=== PATIENT | female | born 1935 | race Caucasian/White ===

== ENCOUNTER → 2020-07-26 | Outpatient (CLI) | payer MEDICARE ==
[~2020-07-26] MED LIST: ALLEGRA ALLERG180 M2 PO; ATORVASTATIN CA20 M1 PO; CALCIUM + D SO1 EACH PO; CENTRUM ADULTS1 EACH PO; CITALOPRAM HYDR10 MG PO; CLOBETASOL PROP15 GM T; COZAAR100 MG PO; DAPSONE25 M1 PO; DONEPEZIL HYDRO23 M1 PO; FUROSEMIDE20 M1 PO; JANTOVEN5 MG PO; LEVOXYL137 MCG PO
== END | disposition home or self-care (01) ==
LOC: CT 14:00
PROVIDERS: ATTEND Nurse Practitioner
DX: K80.20 Calculus of gallbladder without cholecystitis without obstruction (principal); K44.9 Diaphragmatic hernia without obstruction or gangrene

== ENCOUNTER → 2020-08-25 | Outpatient (CLI) | payer MEDICARE ==
[~2020-08-25] MED LIST changes: +COLACE100 MG PO; +NORCO 5-325 TA1 EACH PO
== END | disposition home or self-care (01) ==
LOC: MRI 09:00
PROVIDERS: ATTEND Internal Medicine Sports Medicine
DX: M48.061 Spinal stenosis, lumbar region without neurogenic claudication (principal); M48.07 Spinal stenosis, lumbosacral region; M46.06 Spinal enthesopathy, lumbar region; M89.38 Hypertrophy of bone, other site

== ENCOUNTER → 2021-02-26 | Outpatient (CLI) | payer MEDICARE | END | disposition home or self-care (01) | LOC: RAD 09:34 | PROVIDERS: ATTEND Orthopaedic Surgery | DX: S72.35 Comminuted fracture of shaft of femur (principal); S72.451D Displaced supracondylar fracture without intracondylar extension of lower end of right femur, subsequent encounter for closed fracture with routine healing; X58.XXXD Exposure to other specified factors, subsequent encounter; Z96.651 Presence of right artificial knee joint; Z96.641 Presence of right artificial hip joint; Z98.890 Other specified postprocedural states ==

== ENCOUNTER 2021-03-08 15:23 | Inpatient (IN) | payer MEDICARE ==
[~2021-03-08] VITALS: Ht 172.7 cm; Wt 94.3 kg
[2021-03-08 15:28] VITALS: BP 109/83
[2021-03-08 16:06] LABS: BASO % 0.3 % (0.0-1.0); EOS # 0.2 10*3/uL (0.0-0.4); EOS % 2.3 % (1.0-4.0); LYMPH % 26.1 % (27.0-41.0); MEAN CELL VOLUME 92.5 fl (81.0-99.0); MEAN CORPUSCULAR HGB 28.1 pg (27.0-31.0); MEAN CORPUSCULAR HGB CONC 30.4 g/dl (33.0-37.0); MEAN PLATELET VOLUME 8.7 fl (9.6-12.3); MONO # 1.2 10*3/uL (0.1-1.0); MONO % 16.4 % (3.0-9.0); NEUT # 4.1 10*3/uL (2.3-7.9); NEUT % 54.5 % (47.0-73.0); PLATELET COUNT AUTOMATED 306 10*3/uL (130-400); RED BLOOD COUNT 2.92 10*6/uL (4.10-5.10); RED CELL DISTRI WIDTH 16.4 % (0-14.5); WHITE BLOOD COUNT 7.6 10*3/uL (4.8-10.8)
[2021-03-08 16:16] LABS: ACT PARTIAL THROMBO TIME 33.3 SECONDS (20.0-32.1); INTERNATIONAL NORM RATIO 1.8 (2.0-3.5)
[2021-03-08 16:24] LABS: ALBUMIN 2.1 gm/dl (3.1-4.5); ALKALINE PHOSPHATASE 103 U/L (45-117); BUN 14 mg/dl (7-24); CHLORIDE 101 mmol/L (98-107); CREATININE 1.08 mg/dL (0.55-1.02); LIPASE 147 U/L (73-393); SGOT/AST 11 IU/L (3-35); SGPT/ALT 10 U/L (12-78); SODIUM 134 mmol/L (136-145); TOTAL PROTEIN 6.6 gm/dL (6.4-8.2)
[2021-03-08 16:28] LABS: TROPONIN I < 0.015 ng/ml (<0.045)
[2021-03-08 16:30] VITALS: BP 115/60
[2021-03-08 17:00] VITALS: BP 124/64
[2021-03-08 17:30] VITALS: BP 130/71
[2021-03-08 20:07] VITALS: BP 96/56
[2021-03-08 20:50] VITALS: BP 106/66
[2021-03-08] MEDS ORDERED: LASIX40 MG PO (23:26)
[2021-03-08] MEDS ORDERED: TOPROL XL25 MG PO (23:30)
[2021-03-08] MEDS ORDERED: Coumadin3 MG PO (23:32)
[2021-03-08] MEDS ORDERED: WARFARIN SODIUM4 MG PO (23:33)
[2021-03-08] MEDS ORDERED: LEXAPRO5 M1 PO (23:33)
[2021-03-08] MEDS ORDERED: HYDROCODONE-AC1 EAC1 PO (23:35)
[2021-03-09] VITALS (8 sets, daily range): BP systolic 102–128; BP diastolic 34–83
[2021-03-09 06:03] LABS: BASO % 0.4 % (0.0-1.0); EOS # 0.2 10*3/uL (0.0-0.4); EOS % 3.1 % (1.0-4.0); LYMPH # 1.9 10*3/uL (1.3-4.4); LYMPH % 25.5 % (27.0-41.0); MEAN CELL VOLUME 94.1 fl (81.0-99.0); MEAN CORPUSCULAR HGB 28.2 pg (27.0-31.0); MEAN PLATELET VOLUME 9.1 fl (9.6-12.3); MONO # 1.2 10*3/uL (0.1-1.0); MONO % 15.8 % (3.0-9.0); NEUT # 4.1 10*3/uL (2.3-7.9); NEUT % 54.7 % (47.0-73.0); PLATELET COUNT AUTOMATED 282 10*3/uL (130-400); RED BLOOD COUNT 2.87 10*6/uL (4.10-5.10); RED CELL DISTRI WIDTH 16.4 % (0-14.5); WHITE BLOOD COUNT 7.4 10*3/uL (4.8-10.8)
[2021-03-09 06:16] LABS: INTERNATIONAL NORM RATIO 1.8 (2.0-3.5)
[2021-03-09 06:25] LABS: ALBUMIN 2.3 gm/dl (3.1-4.5); BUN 16 mg/dl (7-24); CHLORIDE 99 mmol/L (98-107); CREATININE 0.99 mg/dL (0.55-1.02); POTASSIUM 3.7 mmol/L (3.5-5.1); SGOT/AST 10 IU/L (3-35); SGPT/ALT 9 U/L (12-78); SODIUM 135 mmol/L (136-145); TOTAL PROTEIN 6.3 gm/dL (6.4-8.2)
[2021-03-09 06:26] LABS: ALKALINE PHOSPHATASE 95 U/L (45-117)
[2021-03-10 06:32] LABS: BUN 21 mg/dl (7-24); CHLORIDE 97 mmol/L (98-107); CREATININE 1.03 mg/dL (0.55-1.02); POTASSIUM 4.3 mmol/L (3.5-5.1); SODIUM 133 mmol/L (136-145)
[2021-03-10 08:00] VITALS: BP 125/74
[2021-03-10 12:00] VITALS: BP 128/69
[2021-03-10 16:05] VITALS: BP 99/56
[2021-03-10 20:00] VITALS: BP 115/58
[2021-03-10 23:51] VITALS: BP 125/81
[2021-03-11 05:41] LABS: CREATININE 1.09 mg/dL (0.55-1.02); POTASSIUM 3.9 mmol/L (3.5-5.1)
[2021-03-11 06:11] LABS: INTERNATIONAL NORM RATIO 2.7 (2.0-3.5)
[2021-03-11 06:12] LABS: BASO % 0.4 % (0.0-1.0); EOS % 0.3 % (1.0-4.0); HEMATOCRIT 25.9 % (37.0-47.0); LYMPH # 2.2 10*3/uL (1.3-4.4); LYMPH % 19.8 % (27.0-41.0); MEAN CELL VOLUME 91.2 fl (81.0-99.0); MEAN CORPUSCULAR HGB 27.8 pg (27.0-31.0); MEAN CORPUSCULAR HGB CONC 30.5 g/dl (33.0-37.0); MEAN PLATELET VOLUME 9.4 fl (9.6-12.3); MONO # 1.5 10*3/uL (0.1-1.0); MONO % 13.6 % (3.0-9.0); NEUT # 7.2 10*3/uL (2.3-7.9); NEUT % 65.2 % (47.0-73.0); NUCLEATED RED BLOOD CELL 0.3 % (0.0-0.0); PLATELET COUNT AUTOMATED 304 10*3/uL (130-400); RED BLOOD COUNT 2.84 10*6/uL (4.10-5.10); RED CELL DISTRI WIDTH 17.1 % (0-14.5)
[2021-03-11 08:00] VITALS: BP 117/64
[2021-03-11 11:27] VITALS: BP 91/51
[2021-03-11 16:02] VITALS: BP 108/90
[2021-03-11 20:00] VITALS: BP 100/78
[2021-03-12] VITALS: BP 109/64
[2021-03-12 06:08] LABS: CREATININE 1.3 mg/dL (0.55-1.02); POTASSIUM 3.7 mmol/L (3.5-5.1)
[2021-03-12 06:18] LABS: INTERNATIONAL NORM RATIO 3.8 (2.0-3.5)
[2021-03-12 06:35] LABS: HEMATOCRIT 26.4 % (37.0-47.0); MEAN CORPUSCULAR HGB CONC 29.5 g/dl (33.0-37.0); MEAN PLATELET VOLUME 9.4 fl (9.6-12.3); NUCLEATED RED BLOOD CELL 0.3 % (0.0-0.0); PLATELET COUNT AUTOMATED 300 10*3/uL (130-400); RED BLOOD COUNT 2.79 10*6/uL (4.10-5.10); RED CELL DISTRI WIDTH 17.5 % (0-14.5); WHITE BLOOD COUNT 11.5 10*3/uL (4.8-10.8)
[2021-03-12 06:37] LABS: MEAN CELL VOLUME 94.6 fl (81.0-99.0)
[2021-03-12 07:24] LABS: PLATELET SUFFICIENCY NORMAL (NORMAL); POLYCHROMASIA SLIGHT; TOTAL CELLS COUNTED 100 #CELLS
[2021-03-12 07:25] LABS: BURR CELLS FEW; ROULEAUX SLIGHT; SCHISTOCYTES FEW
[2021-03-12 08:00] VITALS: BP 100/59
[2021-03-12 12:00] VITALS: BP 110/62
[2021-03-12 16:00] VITALS: BP 99/61
[2021-03-12 20:14] VITALS: BP 91/60
[2021-03-12 23:11] VITALS: BP 104/64
[2021-03-13 06:12] LABS: INTERNATIONAL NORM RATIO 4.4 (2.0-3.5)
[2021-03-13 08:00] VITALS: BP 86/40
[2021-03-13 12:00] VITALS: BP 109/64
[2021-03-13 16:00] VITALS: BP 149/100
[2021-03-13 20:00] VITALS: BP 82/47
[2021-03-13 21:04] VITALS: BP 100/78
[2021-03-14] VITALS: BP 107/60
[2021-03-14 05:14] LABS: CREATININE 1.16 mg/dL (0.55-1.02); POTASSIUM 3.3 mmol/L (3.5-5.1)
[2021-03-14 05:33] LABS: INTERNATIONAL NORM RATIO 4.6 (2.0-3.5)
[2021-03-14 06:02] LABS: BASO % 0.3 % (0.0-1.0); EOS # 0.1 10*3/uL (0.0-0.4); EOS % 0.6 % (1.0-4.0); HEMATOCRIT 26.1 % (37.0-47.0); LYMPH # 2.3 10*3/uL (1.3-4.4); LYMPH % 19.6 % (27.0-41.0); MEAN CELL VOLUME 92.9 fl (81.0-99.0); MEAN CORPUSCULAR HGB 27.4 pg (27.0-31.0); MEAN CORPUSCULAR HGB CONC 29.5 g/dl (33.0-37.0); MEAN PLATELET VOLUME 9.5 fl (9.6-12.3); MONO # 1.3 10*3/uL (0.1-1.0); MONO % 10.6 % (3.0-9.0); NEUT # 8.1 10*3/uL (2.3-7.9); NEUT % 67.7 % (47.0-73.0); NUCLEATED RED BLOOD CELL 0.2 % (0.0-0.0); PLATELET COUNT AUTOMATED 330 10*3/uL (130-400); RED BLOOD COUNT 2.81 10*6/uL (4.10-5.10); RED CELL DISTRI WIDTH 17.5 % (0-14.5); WHITE BLOOD COUNT 11.9 10*3/uL (4.8-10.8)
[2021-03-14 08:00] VITALS: BP 112/68
[2021-03-14 12:00] VITALS: BP 89/47
[2021-03-14 16:00] VITALS: BP 107/68
[2021-03-14 20:00] VITALS: BP 108/64; BP 98/54
[2021-03-14 20:26] VITALS: BP 90/54
[2021-03-15] VITALS: BP 113/73
[2021-03-15 06:13] LABS: INTERNATIONAL NORM RATIO 3.2 (2.0-3.5)
[2021-03-15 06:25] LABS: BASO % 0.2 % (0.0-1.0); EOS # 0.1 10*3/uL (0.0-0.4); EOS % 0.7 % (1.0-4.0); HEMATOCRIT 25.8 % (37.0-47.0); LYMPH # 2.7 10*3/uL (1.3-4.4); LYMPH % 25.3 % (27.0-41.0); MEAN CELL VOLUME 92.1 fl (81.0-99.0); MEAN CORPUSCULAR HGB 27.5 pg (27.0-31.0); MEAN CORPUSCULAR HGB CONC 29.8 g/dl (33.0-37.0); MEAN PLATELET VOLUME 9.5 fl (9.6-12.3); MONO # 1.2 10*3/uL (0.1-1.0); MONO % 11.3 % (3.0-9.0); NEUT # 6.5 10*3/uL (2.3-7.9); NEUT % 61.9 % (47.0-73.0); NUCLEATED RED BLOOD CELL 0.2 % (0.0-0.0); PLATELET COUNT AUTOMATED 360 10*3/uL (130-400); RED CELL DISTRI WIDTH 17.6 % (0-14.5); WHITE BLOOD COUNT 10.5 10*3/uL (4.8-10.8)
[2021-03-15 08:00] VITALS: BP 100/62
[2021-03-15 12:00] VITALS: BP 112/74
[2021-03-15 16:00] VITALS: BP 92/56
[2021-03-15 20:00] VITALS: BP 92/47
[2021-03-16] VITALS: BP 111/66
[2021-03-16 06:05] LABS: INTERNATIONAL NORM RATIO 3.6 (2.0-3.5)
[2021-03-16 08:00] VITALS: BP 104/72
[2021-03-16] MEDS ORDERED: METOPROLOL SUCC50 M1 PO (11:50)
[2021-03-16] MEDS ORDERED: LOSARTAN POTASS25 M1 PO (11:50)
[2021-03-16] MEDS ORDERED: WARFARIN SOD2 MG PO (11:50)
[2021-03-16 12:00] VITALS: BP 108/68
== END 2021-03-16 15:40 | DRG 291 ==
LOC: ED 15:23 → EDHOLD 17:22 → 4E 17:22
PROVIDERS: Emergency Medicine; Internal Medicine; Registered Nurse; Student in an Organized Health Care Education/Training Program; ADMIT Internal Medicine; ATTEND Internal Medicine
DX: I13.0 Hypertensive heart and chronic kidney disease with heart failure and stage 1 through stage 4 chronic kidney disease, or unspecified chronic kidney disease (principal); E43 Unspecified severe protein-calorie malnutrition; J96.01 Acute respiratory failure with hypoxia; I50.33 Acute on chronic diastolic (congestive) heart failure; N17.0 Acute kidney failure with tubular necrosis; E87.1 Hypo-osmolality and hyponatremia; L12.0 Bullous pemphigoid; D68.9 Coagulation defect, unspecified; I48.19 Other persistent atrial fibrillation; I48.92 Unspecified atrial flutter; R65.10 Systemic inflammatory response syndrome (SIRS) of non-infectious origin without acute organ dysfunction; G30.9 Alzheimer's disease, unspecified; I83.93 Asymptomatic varicose veins of bilateral lower extremities; I48.0 Paroxysmal atrial fibrillation; N18.32 Chronic kidney disease, stage 3b; R73.9 Hyperglycemia, unspecified; E03.9 Hypothyroidism, unspecified; F02.80 Dementia in other diseases classified elsewhere, unspecified severity, without behavioral disturbance, psychotic disturbance, mood disturbance, and anxiety; E78.5 Hyperlipidemia, unspecified; Z96.651 Presence of right artificial knee joint; Z96.643 Presence of artificial hip joint, bilateral; M19.90 Unspecified osteoarthritis, unspecified site; M81.0 Age-related osteoporosis without current pathological fracture; M51.36 Other intervertebral disc degeneration, lumbar region; K80.80 Other cholelithiasis without obstruction; D64.9 Anemia, unspecified; I95.9 Hypotension, unspecified; M79.672 Pain in left foot; I70.203 Unspecified atherosclerosis of native arteries of extremities, bilateral legs; M19.072 Primary osteoarthritis, left ankle and foot; M65.88 Other synovitis and tenosynovitis, other site; S80.822A Blister (nonthermal), left lower leg, initial encounter; X58.XXXA Exposure to other specified factors, initial encounter; Z68.34 Body mass index [BMI] 34.0-34.9, adult; Z88.0 Allergy status to penicillin; Z90.49 Acquired absence of other specified parts of digestive tract; Z90.710 Acquired absence of both cervix and uterus; Z98.49 Cataract extraction status, unspecified eye; Z82.49 Family history of ischemic heart disease and other diseases of the circulatory system; Z82.0 Family history of epilepsy and other diseases of the nervous system; Z79.899 Other long term (current) drug therapy; Y93.89 Activity, other specified; Y92.89 Other specified places as the place of occurrence of the external cause; Y99.8 Other external cause status; Z68.31 Body mass index [BMI] 31.0-31.9, adult

== ENCOUNTER → 2021-03-28 | Outpatient (CLI) | payer MEDICARE ==
[~2021-03-28] MED LIST changes: +Coumadin3 MG PO; +HYDROCODONE-AC1 EAC1 PO; +LASIX40 MG PO; +LEXAPRO5 M1 PO; +LOSARTAN POTASS25 M1 PO; +METOPROLOL SUCC50 M1 PO; +TOPROL XL25 MG PO; +WARFARIN SOD2 MG PO; +WARFARIN SODIUM4 MG PO
== END | disposition home or self-care (01) ==
LOC: ORTHO 01:05
PROVIDERS: ATTEND Orthopaedic Surgery
DX: S72.35 Comminuted fracture of shaft of femur (principal); X58.XXXD Exposure to other specified factors, subsequent encounter; Z96.641 Presence of right artificial hip joint; Z96.651 Presence of right artificial knee joint

== ENCOUNTER → 2021-04-13 | Outpatient (CLI) | payer MEDICARE | END | disposition home or self-care (01) | LOC: ORTHO 04-12 01:57 | PROVIDERS: ATTEND Orthopaedic Surgery | DX: M84.451D Pathological fracture, right femur, subsequent encounter for fracture with routine healing (principal); I70.201 Unspecified atherosclerosis of native arteries of extremities, right leg ==

== ENCOUNTER → 2021-04-27 | Outpatient (CLI) | payer MEDICARE | END | disposition home or self-care (01) | LOC: RAD 02:04 | PROVIDERS: ATTEND Orthopaedic Surgery | DX: M81.0 Age-related osteoporosis without current pathological fracture (principal); M84.451D Pathological fracture, right femur, subsequent encounter for fracture with routine healing; I25.10 Atherosclerotic heart disease of native coronary artery without angina pectoris; Z96.641 Presence of right artificial hip joint; Z98.890 Other specified postprocedural states ==

== ENCOUNTER → 2021-06-01 | Outpatient (CLI) | payer MEDICARE | LOC: ORTHO 00:39 | PROVIDERS: ATTEND Orthopaedic Surgery | DX: S72.301D Unspecified fracture of shaft of right femur, subsequent encounter for closed fracture with routine healing (principal); M16.11 Unilateral primary osteoarthritis, right hip; X58.XXXD Exposure to other specified factors, subsequent encounter ==

== ENCOUNTER 2021-07-17 16:48 | Inpatient (IN) | payer MEDICARE ==
[~2021-07-17] VITALS: Ht 172.7 cm; Wt 75.0 kg
[2021-07-17 16:53] VITALS: BP 104/46
[2021-07-17 17:07] LABS: HEMATOCRIT 23.3 % (37.0-47.0); MEAN CORPUSCULAR HGB 24.5 pg (27.0-31.0); PLATELET COUNT AUTOMATED 454 10*3/uL (130-400); RED BLOOD COUNT 2.86 10*6/uL (4.10-5.10); RED CELL DISTRI WIDTH 19.4 % (0-14.5); WHITE BLOOD COUNT 9.7 10*3/uL (4.8-10.8)
[2021-07-17 17:22] LABS: MEAN CELL VOLUME 81.5 fl (81.0-99.0)
[2021-07-17 17:23] LABS: ALBUMIN 1.9 gm/dl (3.1-4.5); CREATININE 1.86 mg/dL (0.55-1.02); POTASSIUM 5.2 mmol/L (3.5-5.1); TOTAL PROTEIN 7.6 gm/dL (6.4-8.2)
[2021-07-17 17:31] LABS: ATYPICAL LYMPHS 1 % (0-0); TOTAL CELLS COUNTED 100 #CELLS
[2021-07-17 17:32] LABS: MICROCYTOSIS SLIGHT; PLATELET SUFFICIENCY HIGH (NORMAL)
[2021-07-17 17:45] LABS: BILIRUBIN Negative (Negative); BLOOD 2+ (Negative); CLARITY Turbid (Clear); COLOR Yellow (Yellow); GLUCOSE Negative (Negative); KETONE Negative (Negative); LEUKO ESTERASE 3+ (Negative); NITRITE Positive (Negative); PH 6.5 (4.5-8.0); UROBILINOGEN 0.2 E.U./dl (0.0-1.0)
[2021-07-17 17:53] LABS: BACTERIA 4+; WBC TNTC wbc/hpf (0-5)
[2021-07-17 19:50] VITALS: BP 112/51
[2021-07-17 21:55] VITALS: BP 104/64
[2021-07-17 22:37] LABS: INTERNATIONAL NORM RATIO 1.2 (2.0-3.5)
[2021-07-17] MEDS ORDERED: AQUAPHOR WITH N50 GM T (23:03)
[2021-07-17] MEDS ORDERED: ELIQUIS5 M1 PO (23:27)
[2021-07-17] MEDS ORDERED: ROBITUSSIN5 ML PO (23:29)
[2021-07-17] MEDS ORDERED: HYDROCORTISON28.4 G5 T (23:31)
[2021-07-17] MEDS ORDERED: DRONABINOL2.5 MG PO (23:39)
[2021-07-17] MEDS ORDERED: LOPRESSOR25 MG PO (23:41)
[2021-07-17] MEDS ORDERED: MOM30 M1 PO (23:42)
[2021-07-17] MEDS ORDERED: MIRALAX POWDER17 G1 PO (23:43)
[2021-07-17] MEDS ORDERED: ZOFRAN4 MG PO (23:44)
[2021-07-17] MEDS ORDERED: POTASSIUM CHLO20 ME3 PO (23:47)
[2021-07-17] MEDS ORDERED: REMERON30 M1 PO (23:48)
[2021-07-18] VITALS (13 sets, daily range): BP systolic 87–140; BP diastolic 38–70
[2021-07-18 06:24] LABS: HEMATOCRIT 21.6 % (37.0-47.0); MEAN CELL VOLUME 82.8 fl (81.0-99.0); MEAN CORPUSCULAR HGB 24.1 pg (27.0-31.0); MEAN CORPUSCULAR HGB CONC 29.2 g/dl (33.0-37.0); MEAN PLATELET VOLUME 8.7 fl (9.6-12.3); PLATELET COUNT AUTOMATED 447 10*3/uL (130-400); RED BLOOD COUNT 2.61 10*6/uL (4.10-5.10); RED CELL DISTRI WIDTH 19.4 % (0-14.5); WHITE BLOOD COUNT 10.4 10*3/uL (4.8-10.8)
[2021-07-18 06:40] LABS: ALBUMIN 1.7 gm/dl (3.1-4.5); CREATININE 1.78 mg/dL (0.55-1.02); FREE T4 0.58 ng/dl (0.76-1.46); POTASSIUM 4.8 mmol/L (3.5-5.1); TOTAL PROTEIN 6.8 gm/dL (6.4-8.2)
[2021-07-18 06:46] LABS: THYROID STIM HORMONE (HS) 13.3 uIU/ml (0.358-4.75)
[2021-07-18 07:52] LABS: PLATELET SUFFICIENCY HIGH (NORMAL); ROULEAUX MODERATE; TOTAL CELLS COUNTED 100 #CELLS
[2021-07-18 13:50] LABS: BASO % 0.2 % (0.0-1.0); EOS % 0.3 % (1.0-4.0); HEMATOCRIT 27.7 % (37.0-47.0); LYMPH # 1.1 10*3/uL (1.3-4.4); LYMPH % 11.3 % (27.0-41.0); MEAN CELL VOLUME 84.5 fl (81.0-99.0); MEAN CORPUSCULAR HGB 25.3 pg (27.0-31.0); MEAN PLATELET VOLUME 8.1 fl (9.6-12.3); MONO % 10.1 % (3.0-9.0); NEUT # 7.6 10*3/uL (2.3-7.9); NEUT % 76.9 % (47.0-73.0); PLATELET COUNT AUTOMATED 406 10*3/uL (130-400); RED BLOOD COUNT 3.28 10*6/uL (4.10-5.10); RED CELL DISTRI WIDTH 18.3 % (0-14.5); WHITE BLOOD COUNT 9.9 10*3/uL (4.8-10.8)
[2021-07-19] VITALS (10 sets, daily range): BP systolic 90–136; BP diastolic 36–93
[2021-07-19 06:24] LABS: BASO % 0.2 % (0.0-1.0); EOS % 0.2 % (1.0-4.0); HEMATOCRIT 23.8 % (37.0-47.0); LYMPH # 0.4 10*3/uL (1.3-4.4); LYMPH % 3.4 % (27.0-41.0); MEAN CELL VOLUME 85.9 fl (81.0-99.0); MEAN CORPUSCULAR HGB 25.3 pg (27.0-31.0); MEAN CORPUSCULAR HGB CONC 29.4 g/dl (33.0-37.0); MEAN PLATELET VOLUME 8.6 fl (9.6-12.3); MONO # 0.6 10*3/uL (0.1-1.0); MONO % 4.8 % (3.0-9.0); NEUT # 11.3 10*3/uL (2.3-7.9); PLATELET COUNT AUTOMATED 373 10*3/uL (130-400); RED BLOOD COUNT 2.77 10*6/uL (4.10-5.10); RED CELL DISTRI WIDTH 18.6 % (0-14.5); WHITE BLOOD COUNT 12.5 10*3/uL (4.8-10.8)
[2021-07-19 07:02] LABS: ALBUMIN 1.6 gm/dl (3.1-4.5); CREATININE 1.67 mg/dL (0.55-1.02); POTASSIUM 4.4 mmol/L (3.5-5.1); TOTAL PROTEIN 6.6 gm/dL (6.4-8.2)
[2021-07-19 20:34] LABS: BASO % 0.1 % (0.0-1.0); EOS # 0.2 10*3/uL (0.0-0.4); EOS % 1.7 % (1.0-4.0); LYMPH # 1.2 10*3/uL (1.3-4.4); LYMPH % 8.8 % (27.0-41.0); MEAN CELL VOLUME 88.9 fl (81.0-99.0); MEAN CORPUSCULAR HGB 26.1 pg (27.0-31.0); MEAN CORPUSCULAR HGB CONC 29.4 g/dl (33.0-37.0); MEAN PLATELET VOLUME 8.3 fl (9.6-12.3); MONO # 0.7 10*3/uL (0.1-1.0); MONO % 5.4 % (3.0-9.0); NEUT # 11.4 10*3/uL (2.3-7.9); NEUT % 82.8 % (47.0-73.0); PLATELET COUNT AUTOMATED 358 10*3/uL (130-400); RED CELL DISTRI WIDTH 17.9 % (0-14.5); WHITE BLOOD COUNT 13.7 10*3/uL (4.8-10.8)
[2021-07-20] VITALS (8 sets, daily range): BP systolic 89–132; BP diastolic 42–85
[2021-07-20 05:53] LABS: ALBUMIN 1.5 gm/dl (3.1-4.5); CREATININE 1.45 mg/dL (0.55-1.02); TOTAL PROTEIN 6.4 gm/dL (6.4-8.2)
[2021-07-20 06:19] LABS: BASO % 0.2 % (0.0-1.0); EOS # 0.1 10*3/uL (0.0-0.4); EOS % 0.5 % (1.0-4.0); HEMATOCRIT 27.3 % (37.0-47.0); LYMPH # 0.8 10*3/uL (1.3-4.4); LYMPH % 5.9 % (27.0-41.0); MEAN CELL VOLUME 87.5 fl (81.0-99.0); MEAN CORPUSCULAR HGB CONC 29.7 g/dl (33.0-37.0); MEAN PLATELET VOLUME 8.8 fl (9.6-12.3); MONO # 0.6 10*3/uL (0.1-1.0); MONO % 4.3 % (3.0-9.0); NEUT # 11.4 10*3/uL (2.3-7.9); NEUT % 87.3 % (47.0-73.0); PLATELET COUNT AUTOMATED 324 10*3/uL (130-400); RED BLOOD COUNT 3.12 10*6/uL (4.10-5.10); WHITE BLOOD COUNT 13.1 10*3/uL (4.8-10.8)
[2021-07-21] VITALS: BP 107/56
[2021-07-21 04:00] VITALS: BP 103/51
[2021-07-21 06:06] LABS: ALBUMIN 1.7 gm/dl (3.1-4.5); CREATININE 1.42 mg/dL (0.55-1.02); POTASSIUM 4.6 mmol/L (3.5-5.1); TOTAL PROTEIN 6.1 gm/dL (6.4-8.2)
[2021-07-21 06:28] LABS: HEMATOCRIT 34.3 % (37.0-47.0); MEAN CELL VOLUME 87.7 fl (81.0-99.0); MEAN CORPUSCULAR HGB 25.3 pg (27.0-31.0); MEAN CORPUSCULAR HGB CONC 28.9 g/dl (33.0-37.0); MEAN PLATELET VOLUME 8.9 fl (9.6-12.3); PLATELET COUNT AUTOMATED 302 10*3/uL (130-400); RED BLOOD COUNT 3.91 10*6/uL (4.10-5.10); RED CELL DISTRI WIDTH 18.5 % (0-14.5); WHITE BLOOD COUNT 13.1 10*3/uL (4.8-10.8)
[2021-07-21 08:00] VITALS: BP 109/52
[2021-07-21 08:22] LABS: TOTAL CELLS COUNTED 100 #CELLS
[2021-07-21 08:23] LABS: ACANTHOCYTES FEW; PLATELET SUFFICIENCY NORMAL (NORMAL); POLYCHROMASIA SLIGHT
[2021-07-21 08:24] LABS: BURR CELLS MODERATE
[2021-07-21 12:00] VITALS: BP 99/58
[2021-07-21 13:28] LABS: BILIRUBIN Negative (Negative); BLOOD 3+ (Negative); CLARITY Turbid (Clear); COLOR Orange (Yellow); GLUCOSE Negative (Negative); KETONE Negative (Negative); LEUKO ESTERASE 3+ (Negative); NITRITE Negative (Negative); PH 5.5 (4.5-8.0); SPECIFIC GRAVITY 1.015 (1.001-1.030)
[2021-07-21 13:38] LABS: MUCOUS 2+; RBC TNTC rbc/hpf (0-2); WBC TNTC wbc/hpf (0-5)
[2021-07-21 15:56] VITALS: BP 115/65
[2021-07-21 20:00] VITALS: BP 94/51
[2021-07-22] VITALS: BP 99/60
[2021-07-22 04:00] VITALS: BP 109/64
[2021-07-22 12:00] VITALS: BP 91/56
[2021-07-22 16:00] VITALS: BP 94/55
[2021-07-22 20:00] VITALS: BP 128/84
[2021-07-22 22:25] VITALS: BP 110/60
[2021-07-23 02:38] VITALS: BP 114/70
[2021-07-23 06:36] LABS: HEMATOCRIT 31.4 % (37.0-47.0); MEAN CORPUSCULAR HGB 25.4 pg (27.0-31.0); MEAN CORPUSCULAR HGB CONC 30.3 g/dl (33.0-37.0); MEAN PLATELET VOLUME 9.1 fl (9.6-12.3); PLATELET COUNT AUTOMATED 319 10*3/uL (130-400); RED BLOOD COUNT 3.74 10*6/uL (4.10-5.10); RED CELL DISTRI WIDTH 18.4 % (0-14.5); WHITE BLOOD COUNT 12.3 10*3/uL (4.8-10.8)
[2021-07-23 06:55] LABS: ALBUMIN 1.5 gm/dl (3.1-4.5); ALKALINE PHOSPHATASE 86 U/L (45-117); BUN 29 mg/dl (7-24); CHLORIDE 105 mmol/L (98-107); POTASSIUM 3.9 mmol/L (3.5-5.1); SGOT/AST 19 IU/L (3-35); SGPT/ALT 20 U/L (12-78); SODIUM 132 mmol/L (136-145); TOTAL PROTEIN 6.3 gm/dL (6.4-8.2)
[2021-07-23 08:00] VITALS: BP 99/59
[2021-07-23 08:30] LABS: PLATELET SUFFICIENCY NORMAL (NORMAL); TOTAL CELLS COUNTED 100 #CELLS
[2021-07-23 12:00] VITALS: BP 112/69; BP 128/67; BP 134/76
[2021-07-23 16:00] VITALS: BP 110/55
[2021-07-23 20:00] VITALS: BP 114/73
[2021-07-24] VITALS: BP 126/79
[2021-07-24 06:54] LABS: HEMATOCRIT 31.3 % (37.0-47.0); MEAN CORPUSCULAR HGB 25.5 pg (27.0-31.0); MEAN CORPUSCULAR HGB CONC 30.7 g/dl (33.0-37.0); MEAN PLATELET VOLUME 8.9 fl (9.6-12.3); PLATELET COUNT AUTOMATED 352 10*3/uL (130-400); RED BLOOD COUNT 3.77 10*6/uL (4.10-5.10); RED CELL DISTRI WIDTH 18.7 % (0-14.5); WHITE BLOOD COUNT 14.5 10*3/uL (4.8-10.8)
[2021-07-24 07:25] LABS: ALBUMIN 1.5 gm/dl (3.1-4.5); ALKALINE PHOSPHATASE 86 U/L (45-117); BUN 30 mg/dl (7-24); CHLORIDE 107 mmol/L (98-107); CREATININE 1.01 mg/dL (0.55-1.02); POTASSIUM 4.1 mmol/L (3.5-5.1); SGOT/AST 16 IU/L (3-35); SGPT/ALT 19 U/L (12-78); SODIUM 134 mmol/L (136-145); TOTAL PROTEIN 6.1 gm/dL (6.4-8.2)
[2021-07-24 08:00] VITALS: BP 96/55
[2021-07-24 08:05] LABS: PLATELET SUFFICIENCY NORMAL (NORMAL); TOTAL CELLS COUNTED 100 #CELLS
[2021-07-24 12:00] VITALS: BP 91/65
[2021-07-24] MEDS ORDERED: DECADRON6 M1 PO (12:03)
[2021-07-24] MEDS ORDERED: HYDROCODONE-AC1 EAC1 PO (12:04)
== END 2021-07-24 14:20 | DRG 871 ==
LOC: ED 16:48 → 4E 18:04 → EDHOLD 18:04 → 4E 21:14 → ICCU 07-19 20:30 → 4E 07-22 19:31
PROVIDERS: Internal Medicine; Internal Medicine Critical Care Medicine; Student in an Organized Health Care Education/Training Program; ADMIT Family Medicine; ATTEND Family Medicine
PROC: 30233N1 Transfusion of Nonautologous Red Blood Cells into Peripheral Vein, Percutaneous Approach (ICD-10-PCS; principal; 2021-07-18)
PROC: XW033E5 Introduction of Remdesivir Anti-infective into Peripheral Vein, Percutaneous Approach, New Technology Group 5 (ICD-10-PCS; 2021-07-21)
DX: A41.9 Sepsis, unspecified organism (principal); E43 Unspecified severe protein-calorie malnutrition; R65.21 Severe sepsis with septic shock; G93.41 Metabolic encephalopathy; U07.1 COVID-19; N39.0 Urinary tract infection, site not specified; E87.1 Hypo-osmolality and hyponatremia; I87.1 Compression of vein; N18.4 Chronic kidney disease, stage 4 (severe); I50.32 Chronic diastolic (congestive) heart failure; I13.0 Hypertensive heart and chronic kidney disease with heart failure and stage 1 through stage 4 chronic kidney disease, or unspecified chronic kidney disease; I24.8 Other forms of acute ischemic heart disease; I47.1 Supraventricular tachycardia; R31.9 Hematuria, unspecified; I48.0 Paroxysmal atrial fibrillation; E03.9 Hypothyroidism, unspecified; M19.90 Unspecified osteoarthritis, unspecified site; M81.0 Age-related osteoporosis without current pathological fracture; E87.5 Hyperkalemia; E78.5 Hyperlipidemia, unspecified; I48.91 Unspecified atrial fibrillation; G30.9 Alzheimer's disease, unspecified; F02.80 Dementia in other diseases classified elsewhere, unspecified severity, without behavioral disturbance, psychotic disturbance, mood disturbance, and anxiety; R73.9 Hyperglycemia, unspecified; Z96.643 Presence of artificial hip joint, bilateral; G89.29 Other chronic pain; I95.9 Hypotension, unspecified; D50.0 Iron deficiency anemia secondary to blood loss (chronic); B96.1 Klebsiella pneumoniae [K. pneumoniae] as the cause of diseases classified elsewhere; Z90.49 Acquired absence of other specified parts of digestive tract; Z90.710 Acquired absence of both cervix and uterus; Z79.1 Long term (current) use of non-steroidal anti-inflammatories (NSAID); Z79.899 Other long term (current) drug therapy; Z88.0 Allergy status to penicillin; Z82.49 Family history of ischemic heart disease and other diseases of the circulatory system; Z82.0 Family history of epilepsy and other diseases of the nervous system; Z68.25 Body mass index [BMI] 25.0-25.9, adult

== ENCOUNTER 2021-08-01 11:18 | Emergency (ER) | payer MEDICARE ==
[~2021-08-01] VITALS: Ht 170.1 cm; Wt 81.6 kg
[~2021-08-01 11:18] MED LIST changes: +AQUAPHOR WITH N50 GM T; +DECADRON6 M1 PO; +DRONABINOL2.5 MG PO; +ELIQUIS5 M1 PO; +HYDROCORTISON28.4 G5 T; +LOPRESSOR25 MG PO; +MIRALAX POWDER17 G1 PO; +MOM30 M1 PO; +POTASSIUM CHLO20 ME3 PO; +REMERON30 M1 PO; +ROBITUSSIN5 ML PO; +ZOFRAN4 MG PO
[2021-08-01 11:41] LABS: BASO % 0.4 % (0.0-1.0); EOS # 0.1 10*3/uL (0.0-0.4); EOS % 0.6 % (1.0-4.0); HEMATOCRIT 38.5 % (37.0-47.0); LYMPH # 2.5 10*3/uL (1.3-4.4); LYMPH % 22.6 % (27.0-41.0); MEAN CELL VOLUME 87.9 fl (81.0-99.0); MEAN CORPUSCULAR HGB CONC 29.6 g/dl (33.0-37.0); NEUT # 7.2 10*3/uL (2.3-7.9); NEUT % 66.1 % (47.0-73.0); PLATELET COUNT AUTOMATED 395 10*3/uL (130-400); RED BLOOD COUNT 4.38 10*6/uL (4.10-5.10)
[2021-08-01 12:01] LABS: ALBUMIN 2.6 gm/dl (3.1-4.5); ALKALINE PHOSPHATASE 71 U/L (45-117); BUN 43 mg/dl (7-24); CHLORIDE 97 mmol/L (98-107); CREATININE 1.13 mg/dL (0.55-1.02); POTASSIUM 4.3 mmol/L (3.5-5.1); SGOT/AST 9 IU/L (3-35); SGPT/ALT 19 U/L (12-78); SODIUM 134 mmol/L (136-145); TOTAL PROTEIN 7.7 gm/dL (6.4-8.2)
[2021-08-01 12:06] LABS: TROPONIN I < 0.015 ng/ml (<0.045)
[2021-08-01 12:37] LABS: BILIRUBIN Negative (Negative); BLOOD Negative (Negative); CLARITY Clear (Clear); COLOR Yellow (Yellow); GLUCOSE Negative (Negative); KETONE Negative (Negative); LEUKO ESTERASE Negative (Negative); NITRITE Negative (Negative); UROBILINOGEN 0.2 E.U./dl (0.0-1.0)
== END 2021-08-01 17:43 ==
LOC: ED 11:18
PROVIDERS: Physician Assistant
DX: E86.0 Dehydration (principal); R55 Syncope and collapse; F03.90 Unspecified dementia, unspecified severity, without behavioral disturbance, psychotic disturbance, mood disturbance, and anxiety; Z88.0 Allergy status to penicillin; Z79.899 Other long term (current) drug therapy; Z90.711 Acquired absence of uterus with remaining cervical stump; Z90.49 Acquired absence of other specified parts of digestive tract; Z98.890 Other specified postprocedural states; Z96.643 Presence of artificial hip joint, bilateral; Z96.651 Presence of right artificial knee joint

== ENCOUNTER → 2021-08-06 | Outpatient (CLI) | payer MEDICARE ==
[~2021-08-06] MED LIST changes: +CICLOPIROX T; +LEVOFLOXACIN500 MG PO; +METOPROLOL TART50 M1 PO
== END | disposition home or self-care (01) ==
LOC: ORTHO 00:38
PROVIDERS: ATTEND Orthopaedic Surgery
DX: M84.451D Pathological fracture, right femur, subsequent encounter for fracture with routine healing (principal); X58.XXXD Exposure to other specified factors, subsequent encounter

== ENCOUNTER 2021-08-10 09:16 | Inpatient (IN) | payer MEDICARE ==
[2021-08-10] VITALS (33 sets, daily range): BP systolic 79–158; BP diastolic 42–96
[~2021-08-10] VITALS: Ht 167.6 cm; Wt 74.2 kg
[~2021-08-10 09:16] MED LIST changes: -CICLOPIROX T; -LEVOFLOXACIN500 MG PO; -METOPROLOL TART50 M1 PO
[2021-08-10 09:50] LABS: HEMATOCRIT 25.1 % (37.0-47.0); MEAN CELL VOLUME 89.3 fl (81.0-99.0); MEAN CORPUSCULAR HGB 26.7 pg (27.0-31.0); MEAN CORPUSCULAR HGB CONC 29.9 g/dl (33.0-37.0); MEAN PLATELET VOLUME 9.4 fl (9.6-12.3); PLATELET COUNT AUTOMATED 216 10*3/uL (130-400); RED BLOOD COUNT 2.81 10*6/uL (4.10-5.10); RED CELL DISTRI WIDTH 22.4 % (0-14.5); WHITE BLOOD COUNT 6.7 10*3/uL (4.8-10.8)
[2021-08-10 10:01] LABS: ACT PARTIAL THROMBO TIME 39.3 SECONDS (20.0-32.1); INTERNATIONAL NORM RATIO 1.3 (2.0-3.5)
[2021-08-10 10:07] LABS: ALBUMIN 1.7 gm/dl (3.1-4.5); ALKALINE PHOSPHATASE 54 U/L (45-117); BUN 35 mg/dl (7-24); CHLORIDE 105 mmol/L (98-107); CREATININE 1.49 mg/dL (0.55-1.02); POTASSIUM 4.1 mmol/L (3.5-5.1); SGOT/AST 11 IU/L (3-35); SGPT/ALT 9 U/L (12-78); SODIUM 135 mmol/L (136-145); TOTAL PROTEIN 6.2 gm/dL (6.4-8.2)
[2021-08-10 10:09] LABS: TROPONIN I < 0.015 ng/ml (<0.045)
[2021-08-10 10:16] LABS: ATYPICAL LYMPHS 15 % (0-0); BURR CELLS FEW; SCHISTOCYTES FEW; TOTAL CELLS COUNTED 100 #CELLS
[2021-08-10 10:17] LABS: MICROCYTOSIS SLIGHT; PLATELET SUFFICIENCY NORMAL (NORMAL)
[2021-08-10] MEDS ORDERED: CICLOPIROX T (16:37)
[2021-08-10] MEDS ORDERED: CENTRUM ADULTS1 EACH PO (16:45)
[2021-08-11] VITALS (26 sets, daily range): BP systolic 100–139; BP diastolic 54–79
[2021-08-11 06:05] LABS: HEMATOCRIT 30.8 % (37.0-47.0); MEAN CELL VOLUME 89.8 fl (81.0-99.0); MEAN CORPUSCULAR HGB 27.1 pg (27.0-31.0); MEAN CORPUSCULAR HGB CONC 30.2 g/dl (33.0-37.0); MEAN PLATELET VOLUME 9.3 fl (9.6-12.3); PLATELET COUNT AUTOMATED 212 10*3/uL (130-400); RED BLOOD COUNT 3.43 10*6/uL (4.10-5.10); RED CELL DISTRI WIDTH 21.4 % (0-14.5); WHITE BLOOD COUNT 7.1 10*3/uL (4.8-10.8)
[2021-08-11 06:16] LABS: ALBUMIN 1.8 gm/dl (3.1-4.5); CREATININE 1.18 mg/dL (0.55-1.02); POTASSIUM 4.1 mmol/L (3.5-5.1); TOTAL PROTEIN 6.4 gm/dL (6.4-8.2)
[2021-08-11 07:28] LABS: BASOPHILS 1 % (0-1); BURR CELLS MODERATE; OVALOCYTES FEW; PLATELET SUFFICIENCY NORMAL (NORMAL); SCHISTOCYTES FEW; TOTAL CELLS COUNTED 100 #CELLS
[2021-08-11 07:29] LABS: POLYCHROMASIA SLIGHT
[2021-08-12] VITALS: BP 112/67
[2021-08-12 07:54] LABS: HEMATOCRIT 28.1 % (37.0-47.0); MEAN CELL VOLUME 88.4 fl (81.0-99.0); MEAN CORPUSCULAR HGB 27.4 pg (27.0-31.0); MEAN PLATELET VOLUME 9.2 fl (9.6-12.3); PLATELET COUNT AUTOMATED 218 10*3/uL (130-400); RED BLOOD COUNT 3.18 10*6/uL (4.10-5.10); RED CELL DISTRI WIDTH 21.5 % (0-14.5); WHITE BLOOD COUNT 6.3 10*3/uL (4.8-10.8)
[2021-08-12 08:00] VITALS: BP 97/64
[2021-08-12 08:08] LABS: CREATININE 1.18 mg/dL (0.55-1.02); POTASSIUM 3.9 mmol/L (3.5-5.1)
[2021-08-12 08:11] LABS: ATYPICAL LYMPHS 6 % (0-0); BASOPHILS 1 % (0-1); BURR CELLS FEW; OVALOCYTES FEW; PLATELET SUFFICIENCY NORMAL (NORMAL); POLYCHROMASIA SLIGHT; SCHISTOCYTES FEW; TOTAL CELLS COUNTED 100 #CELLS
[2021-08-12 12:00] VITALS: BP 82/42
[2021-08-12 13:11] LABS: BILIRUBIN Negative (Negative); BLOOD Negative (Negative); CLARITY Clear (Clear); COLOR Yellow (Yellow); GLUCOSE Negative (Negative); KETONE Negative (Negative); LEUKO ESTERASE 1+ (Negative); NITRITE Negative (Negative); PH 5.5 (4.5-8.0); UROBILINOGEN 0.2 E.U./dl (0.0-1.0)
[2021-08-12 13:20] LABS: BACTERIA 4+
[2021-08-12 13:21] LABS: MUCOUS 1+
[2021-08-12 13:22] LABS: RBC 0-2 rbc/hpf (0-2)
[2021-08-12 16:00] VITALS: BP 122/72
[2021-08-12 20:00] VITALS: BP 111/73
[2021-08-13] VITALS: BP 123/71
[2021-08-13 08:00] VITALS: BP 108/58
[2021-08-13 12:00] VITALS: BP 103/55
[2021-08-13 16:00] VITALS: BP 91/55
[2021-08-13 20:00] VITALS: BP 104/76
[2021-08-14] VITALS: BP 92/56
[2021-08-14 06:26] LABS: BASO % 0.3 % (0.0-1.0); EOS # 0.1 10*3/uL (0.0-0.4); EOS % 1.7 % (1.0-4.0); HEMATOCRIT 25.7 % (37.0-47.0); LYMPH # 2.5 10*3/uL (1.3-4.4); LYMPH % 38.4 % (27.0-41.0); MEAN CELL VOLUME 88.6 fl (81.0-99.0); MEAN CORPUSCULAR HGB 26.9 pg (27.0-31.0); MEAN CORPUSCULAR HGB CONC 30.4 g/dl (33.0-37.0); MEAN PLATELET VOLUME 8.8 fl (9.6-12.3); MONO # 0.9 10*3/uL (0.1-1.0); MONO % 14.2 % (3.0-9.0); NEUT # 2.8 10*3/uL (2.3-7.9); PLATELET COUNT AUTOMATED 201 10*3/uL (130-400); RED CELL DISTRI WIDTH 22.2 % (0-14.5); WHITE BLOOD COUNT 6.5 10*3/uL (4.8-10.8)
[2021-08-14 06:39] LABS: ALBUMIN 1.8 gm/dl (3.1-4.5); CREATININE 1.18 mg/dL (0.55-1.02); POTASSIUM 3.4 mmol/L (3.5-5.1); TOTAL PROTEIN 6.3 gm/dL (6.4-8.2)
[2021-08-14 07:22] LABS: ATYPICAL LYMPHS 8 % (0-0); BASOPHILS 2 % (0-1); BURR CELLS FEW; MICROCYTOSIS SLIGHT; TOTAL CELLS COUNTED 100 #CELLS
[2021-08-14 07:24] LABS: PLATELET SUFFICIENCY NORMAL (NORMAL); POLYCHROMASIA SLIGHT
[2021-08-14 08:00] VITALS: BP 110/54
[2021-08-14 12:00] VITALS: BP 81/54
[2021-08-14 16:00] VITALS: BP 106/54
[2021-08-14 20:00] VITALS: BP 103/62
[2021-08-15] VITALS: BP 111/56
[2021-08-15 06:39] LABS: HEMATOCRIT 25.5 % (37.0-47.0); MEAN CELL VOLUME 89.2 fl (81.0-99.0); MEAN CORPUSCULAR HGB 26.6 pg (27.0-31.0); MEAN CORPUSCULAR HGB CONC 29.8 g/dl (33.0-37.0); PLATELET COUNT AUTOMATED 241 10*3/uL (130-400); RED BLOOD COUNT 2.86 10*6/uL (4.10-5.10); RED CELL DISTRI WIDTH 22.5 % (0-14.5); WHITE BLOOD COUNT 7.1 10*3/uL (4.8-10.8)
[2021-08-15 07:00] LABS: ALBUMIN 1.7 gm/dl (3.1-4.5); CREATININE 1.24 mg/dL (0.55-1.02); POTASSIUM 3.7 mmol/L (3.5-5.1); TOTAL PROTEIN 6.3 gm/dL (6.4-8.2)
[2021-08-15 08:00] VITALS: BP 98/64
[2021-08-15 08:10] LABS: ATYPICAL LYMPHS 1 % (0-0); BASOPHILS 2 % (0-1); BURR CELLS FEW; PLATELET SUFFICIENCY NORMAL (NORMAL); POLYCHROMASIA SLIGHT; ROULEAUX SLIGHT; TOTAL CELLS COUNTED 100 #CELLS
[2021-08-15 08:12] LABS: SCHISTOCYTES FEW
[2021-08-15 12:00] VITALS: BP 96/50
[2021-08-15 16:00] VITALS: BP 84/53
[2021-08-15 20:00] VITALS: BP 103/65
[2021-08-16] VITALS (11 sets, daily range): BP systolic 90–120; BP diastolic 50–80
[2021-08-16 06:44] LABS: HEMATOCRIT 27.1 % (37.0-47.0); MEAN CELL VOLUME 89.7 fl (81.0-99.0); MEAN CORPUSCULAR HGB 27.5 pg (27.0-31.0); MEAN CORPUSCULAR HGB CONC 30.6 g/dl (33.0-37.0); MEAN PLATELET VOLUME 8.9 fl (9.6-12.3); PLATELET COUNT AUTOMATED 232 10*3/uL (130-400); RED BLOOD COUNT 3.02 10*6/uL (4.10-5.10); RED CELL DISTRI WIDTH 21.2 % (0-14.5); WHITE BLOOD COUNT 6.2 10*3/uL (4.8-10.8)
[2021-08-16 07:02] LABS: ALBUMIN 1.7 gm/dl (3.1-4.5); CREATININE 1.21 mg/dL (0.55-1.02); POTASSIUM 3.7 mmol/L (3.5-5.1); TOTAL PROTEIN 6.4 gm/dL (6.4-8.2)
[2021-08-16 07:17] LABS: OVALOCYTES FEW; PLATELET SUFFICIENCY NORMAL (NORMAL); POLYCHROMASIA SLIGHT; SCHISTOCYTES FEW; TOTAL CELLS COUNTED 100 #CELLS
[2021-08-16 07:18] LABS: ROULEAUX SLIGHT
[2021-08-17] VITALS: BP 84/48; BP 84/49
[2021-08-17 07:05] LABS: HEMATOCRIT 28.6 % (37.0-47.0); MEAN CELL VOLUME 90.2 fl (81.0-99.0); MEAN CORPUSCULAR HGB 27.8 pg (27.0-31.0); MEAN CORPUSCULAR HGB CONC 30.8 g/dl (33.0-37.0); MEAN PLATELET VOLUME 9.1 fl (9.6-12.3); PLATELET COUNT AUTOMATED 280 10*3/uL (130-400); RED BLOOD COUNT 3.17 10*6/uL (4.10-5.10); RED CELL DISTRI WIDTH 21.2 % (0-14.5); WHITE BLOOD COUNT 7.6 10*3/uL (4.8-10.8)
[2021-08-17 07:23] LABS: CREATININE 1.17 mg/dL (0.55-1.02); POTASSIUM 3.7 mmol/L (3.5-5.1)
[2021-08-17 08:00] VITALS: BP 82/46
[2021-08-17 08:13] LABS: ATYPICAL LYMPHS 2 % (0-0); BURR CELLS FEW; OVALOCYTES FEW; PLATELET SUFFICIENCY NORMAL (NORMAL); POLYCHROMASIA SLIGHT; TOTAL CELLS COUNTED 100 #CELLS
[2021-08-17 08:14] LABS: SCHISTOCYTES FEW; SPHEROCYTES FEW
[2021-08-17 12:00] VITALS: BP 80/43
[2021-08-17 16:00] VITALS: BP 104/68
[2021-08-17 20:00] VITALS: BP 111/77
[2021-08-18] VITALS: BP 105/87
[2021-08-18 07:15] LABS: BASO % 0.3 % (0.0-1.0); EOS # 0.1 10*3/uL (0.0-0.4); EOS % 1.4 % (1.0-4.0); HEMATOCRIT 27.9 % (37.0-47.0); LYMPH # 2.4 10*3/uL (1.3-4.4); LYMPH % 30.4 % (27.0-41.0); MEAN CELL VOLUME 90.6 fl (81.0-99.0); MEAN CORPUSCULAR HGB 27.6 pg (27.0-31.0); MEAN CORPUSCULAR HGB CONC 30.5 g/dl (33.0-37.0); MEAN PLATELET VOLUME 8.8 fl (9.6-12.3); MONO # 1.2 10*3/uL (0.1-1.0); MONO % 15.2 % (3.0-9.0); NEUT # 4.1 10*3/uL (2.3-7.9); NEUT % 51.6 % (47.0-73.0); PLATELET COUNT AUTOMATED 304 10*3/uL (130-400); RED BLOOD COUNT 3.08 10*6/uL (4.10-5.10); RED CELL DISTRI WIDTH 21.2 % (0-14.5); WHITE BLOOD COUNT 7.9 10*3/uL (4.8-10.8)
[2021-08-18 07:38] LABS: ALBUMIN 1.6 gm/dl (3.1-4.5); CREATININE 1.11 mg/dL (0.55-1.02); POTASSIUM 3.9 mmol/L (3.5-5.1)
[2021-08-18 07:40] LABS: TOTAL PROTEIN 6.5 gm/dL (6.4-8.2)
[2021-08-18 08:00] VITALS: BP 102/71
[2021-08-18] MEDS ORDERED: METOPROLOL TART50 M1 PO (11:50)
[2021-08-18] MEDS ORDERED: LEVOFLOXACIN500 MG PO (11:50)
[2021-08-18 12:00] VITALS: BP 99/66
[2021-08-18 16:00] VITALS: BP 80/58
== END 2021-08-18 16:41 | DRG 871 ==
LOC: ED 09:16 → EDHOLD 11:29 → 5E 11:29
PROVIDERS: Emergency Medicine; Family Medicine; Registered Nurse; Student in an Organized Health Care Education/Training Program; ADMIT Student in an Organized Health Care Education/Training Program; ATTEND Student in an Organized Health Care Education/Training Program
PROC: 30233N1 Transfusion of Nonautologous Red Blood Cells into Peripheral Vein, Percutaneous Approach (ICD-10-PCS; principal; 2021-08-11)
DX: A41.9 Sepsis, unspecified organism (principal); G93.41 Metabolic encephalopathy; E43 Unspecified severe protein-calorie malnutrition; N17.0 Acute kidney failure with tubular necrosis; J16.8 Pneumonia due to other specified infectious organisms; I13.0 Hypertensive heart and chronic kidney disease with heart failure and stage 1 through stage 4 chronic kidney disease, or unspecified chronic kidney disease; N18.4 Chronic kidney disease, stage 4 (severe); I50.32 Chronic diastolic (congestive) heart failure; I87.1 Compression of vein; K92.2 Gastrointestinal hemorrhage, unspecified; Z51.5 Encounter for palliative care; Z66 Do not resuscitate; D50.9 Iron deficiency anemia, unspecified; Z20.822 Contact with and (suspected) exposure to COVID-19; I95.9 Hypotension, unspecified; I48.0 Paroxysmal atrial fibrillation; E03.9 Hypothyroidism, unspecified; E78.2 Mixed hyperlipidemia; G30.9 Alzheimer's disease, unspecified; F02.80 Dementia in other diseases classified elsewhere, unspecified severity, without behavioral disturbance, psychotic disturbance, mood disturbance, and anxiety; R73.9 Hyperglycemia, unspecified; Z88.0 Allergy status to penicillin; Z79.01 Long term (current) use of anticoagulants; Z79.1 Long term (current) use of non-steroidal anti-inflammatories (NSAID); Z79.899 Other long term (current) drug therapy; Z68.26 Body mass index [BMI] 26.0-26.9, adult